=== PATIENT | female | born 1965 | race African-American/Black ===

== ENCOUNTER 2017-01-19 18:41 | Emergency (ER) | payer MEDICARE, MEDICAID ==
[~2017-01-19] VITALS: Ht 165.1 cm; Wt 56.7 kg
[2017-01-19 19:23] VITALS: BP 105/46
[2017-01-19] MEDS ORDERED: Ketorolac 60mg Inj IM ONE (19:45)
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
[2017-01-19] MEDS ORDERED: CYCLOBENZAPRINE10 MG ORAL (21:11)
[2017-01-19] MEDS ORDERED: TYLENOL EXTRA500 MG ORAL (21:11)
[2017-01-19 21:19] VITALS: BP 100/65
[2017-01-19 21:20] VITALS: BP 100/65
== END 2017-01-19 21:20 | disposition home or self-care (01) ==
LOC: EDBD 18:41 → EMR 19:15
DX: M54.9 Dorsalgia, unspecified (principal); M62.830 Muscle spasm of back; M54.31 Sciatica, right side; V43.52XA Car driver injured in collision with other type car in traffic accident, initial encounter; Y92.410 Unspecified street and highway as the place of occurrence of the external cause; G35 Multiple sclerosis
CPT/HCPCS: 96372; 99284